=== PATIENT | male | born 1960 | race Caucasian/White ===

== ENCOUNTER 2017-10-25 00:41 | Emergency (ER) | payer OTHER ==
[~2017-10-25] VITALS: Ht 182.9 cm; Wt 90.7 kg
[~2017-10-25 00:41] MED LIST: ZOFRAN ONE
[2017-10-25] MEDS ORDERED: ZOFRAN IV STA (00:48)
--- NOTE | 2017-10-25 00:55 | ER.PDOC ---
General Chief Complaint: Nausea,Vomiting,Diarrhea Stated Complaint: N/V,WEAKNESS Time seen by MD: 00:52 Source: patient, EMS Exam Limitations: no limitations History of Present Illness Initial Comments 56 year old white male with acute onset of nausea and vomiting. He was eating pizza two hours ago and suddenly felt sick to his stomach. No fever, no chills. No chest pain Severity/Quality: moderate Abdominal Pain Onset Location: Epigastric Associated Symptoms (vomiting): freq vomitng Allergies: Coded Allergies: No Known Allergies (Unverified , 10/25/17) Vital Signs First Vital Signs Date Time Temp Pulse Resp B/P (MAP) Pulse Ox O2 Delivery O2 Flow Rate FiO2 10/25/17 00:42 98.2 96 18 93 Room Air Last Vital Signs Date Time Temp Pulse Resp B/P (MAP) Pulse Ox O2 Delivery O2 Flow Rate FiO2 10/25/17 00:48 98.2 10/25/17 00:42 96 18 93 Room Air Past Medical History Medical History: diabetes, high cholesterol, hypertension Surgical History: no surgical history Social History Smoking: non-smoker Alcohol Use: none Drug Use: none Constitutional: weakness EENTM: no symptoms reported Respiratory: no symptoms reported Cardiovascular: no symptoms reported Gastrointestinal: see HPI Genitourinary: no symptoms reported Musculoskeletal: no symptoms reported Skin: no symptoms reported Psychiatric/Neurological: no symptoms reported Endocrine: no symptoms reported Hematologic/Lymphatic: no symptoms reported Physical Exam General Appearance: No Apparent Distress, WD/WN HEENT: PERRL/EOMI, Normal ENT Inspection, TMs Normal, Pharynx Normal Neck: Non-Tender, Full Range of Motion, Supple, Normal Inspection Respiratory: chest non-tender, lungs clear, normal breath sounds, no respiratory distress, no accessory muscle use Cardiovascular: Normal Peripheral Pulses, Regular Rate, Rhythm, No Edema, No Gallop, No JVD, No Murmur Gastrointestinal: Normal Bowel Sounds, Non Tender, Soft Back: Normal Inspection, No CVA Tenderness, No Vertebral Tenderness Extremities: Normal Range of Motion, Non-Tender, Normal Inspection, No Pedal Edema, No Calf Tenderness, Normal Capillary Refill, Pelvis Stable Neurologic/Psychiatric: dope heater II-XII NML as Tested, No Motor/Sensory Deficits, Alert, Normal Mood/Affect, Oriented x 3 Skin: Normal Color, Warm/Dry Lymphatic: No Adenopathy Results/Orders Results/Orders Laboratory Tests Test 10/25/17 00:58 White Blood Count 11.9 10^3/uL (4.5-11.0) Red Blood Count 4.88 10^6/uL (4.50-5.90) Hemoglobin 14.2 g/dL (13.9-16.3) Hematocrit 41.2 % (37.0-53.0) Mean Corpuscular Volume 84.4 fL (78-100) Mean Corpuscular Hemoglobin 29.1 pg (26-34) Mean Corpuscular Hemoglobin Concent 34.5 g/dL (33-37) Red Cell Distribution Width 13.7 % (11.5-14.5) Platelet Count 274 10^3/uL (150-400) Mean Platelet Volume 10.2 fL (7.8-11.0) Neutrophils (%) (Auto) 76.8 % (41.0-85.0) Lymphocytes (%) (Auto) 9.8 % (24.0-44.0) Monocytes (%) (Auto) 11.2 % (5.0-12.0) Neutrophils # (Auto) 9.1 10^3/uL (1.8-7.7) Lymphocytes # (Auto) 1.2 10^3/uL (1.0-4.8) Monocytes # (Auto) 1.3 10^3/uL (0.3-0.8) Eosinophils % 1.9 % (0.0-5.0) Basophils % 0.3 % (0.0-0.2) Basophils # 0.0 10^3/uL (0.0-0.1) Eosinophil Count 0.2 10^3/uL (0.0-0.2) Sodium Level 140 mmol/L (132-145) Potassium Level 3.5 mmol/L (3.6-5.2) Chloride Level 101.0 mmol/L (96-109) Carbon Dioxide Level 27.6 mmol/L (20.0-32) Anion Gap 14.9 Blood Urea Nitrogen 24 mg/dL (7-18) Creatinine 1.34 mg/dL (0.59-1.40) Estimated GFR () 66.7 (>/=60) BUN/Creatinine Ratio 17.0 Glucose Level 297 mg/dL (70-110) Calcium Level 9.0 mg/dL (8.4-10.5) Total Bilirubin 0.5 mg/dL (0.2-1.0) Aspartate Amino Transf (AST/SGOT) 40 U/L (0-35) Alanine Aminotransferase (ALT/SGPT) 86 U/L (12-78) Alkaline Phosphatase 55 U/L (50-136) Creatine Kinase MB < 0.5 ng/mL (0.5-3.6) Troponin I < 0.02 ng/mL (0.00-0.05) Total Protein 7.5 g/dL (6.4-8.2) Albumin 4.2 g/dL (3.4-5.0) Globulin 3.3 Amylase Level 21 U/L (25-115) Lipase 175 U/L (114-286) Administered Medications Medications (Trade) Dose Ordered Sig/Lavinia Route PRN Reason Start Time Stop Time Status Last Admin Dose Admin Sodium Chloride 1,000 ml @ 500 mls/hr Q2H ONCE IV 10/25/17 01:00 10/25/17 02:59 10/25/17 01:30 Ondansetron HCl (Zofran) 4 mg STAT STAT IV 10/25/17 00:48 10/25/17 00:53 DC 10/25/17 01:13 Progress Progress Feeling better on recheck Departure Time of Disposition: 01:50 Disposition: 01 HOME, SELF-CARE Impression: Primary Impression: Nausea & vomiting Qualified Codes: R11.2 - Nausea with vomiting, unspecified Condition: Stable Additional Instructions: Clear liquid diet Zofran prn Follow up PCP RTER prn Duration or Time Spent with Pa: 45 DESMOND HERNÁNDEZ MD Oct 25, 2017 00:55
[2017-10-25] MEDS ORDERED: NS 1000ML 1,000 ML IV ONE (01:00)
[2017-10-25 01:03] LABS: BASOPHIL % 0.3 % (0.0-0.2); EOSINOPHIL # 0.2 10^3/uL (0.0-0.2); EOSINOPHIL % 1.9 % (0.0-5.0); HEMOGLOBIN 14.2 g/dL (13.9-16.3); LYMPHOCYTES # 1.2 10^3/uL (1.0-4.8); LYMPHOCYTES % 9.8 % (24.0-44.0); MEAN CELL HGB 29.1 pg (26-34); MEAN CELL HGB CONCENTRATION 34.5 g/dL (33-37); MEAN CORP VOLUME 84.4 fL (78-100); MEAN PLATELET VOLUME 10.2 fL (7.8-11.0); MONOCYTES # 1.3 10^3/uL (0.3-0.8); MONOCYTES % 11.2 % (5.0-12.0); NEUTROPHIL # 9.1 10^3/uL (1.8-7.7); NEUTROPHILS % 76.8 % (41.0-85.0); PLATELET COUNT 274 10^3/uL (150-400); RED CELL DISTRIBUTION WIDTH 13.7 % (11.5-14.5); WHITE BLOOD CELL 11.9 10^3/uL (4.5-11.0)
--- NOTE | 2017-10-25 01:04 | PCM.EKG ---
[facility] Test Date: 2017-10-25 Test Time: 01:05:11 Pat Name: JACKIE CONTEH [facility]: [id number] Room: Gender: M Osteologist: LAISHA : 1961-10-25 Requested By: GABE HERNÁNDEZ Order Number: [id number] Reading MD: Gabe Hernández Measurements Intervals [place] Rate: 90 P: 30 ND: 166 QRS: -12 QRSD: 104 T: 39 QT: 386 QTc: 472 Interpretive Statements Normal sinus rhythm Normal ECG No previous ECG available for comparison Electronically Signed On 10-25-2017 6:35:10 CDT by Gabe Hernández Please click the below link to view image of tracing.
[2017-10-25] MEDS ORDERED: NS 1000ML 1,000 ML ONE (01:22)
[2017-10-25 01:28] LABS: ALANINE AMINOTRANSFERASE(ML) 86 U/L (12-78); ALKALINE PHOSPHATASE 55 U/L (50-136); ASPARTATE AMINO TRANSFERASE 40 U/L (0-35); CARBON DIOXIDE 27.6 mmol/L (20.0-32); GLUCOSE 297 mg/dL (70-110)
--- NOTE | 2017-10-25 01:29 | DIREP ---
PROCEDURE:XRAY ACUTE ABD without CHEST TECHNIQUE :Flat and upright views of the abdomen are provided. COMPARISON:None. INDICATIONS:nausea and vomiting FINDINGS: BOWEL GAS PATTERN:Paucity of bowel gas without air-fluid levels or evidence of bowel obstruction. FREE AIR:None. CALCIFICATIONS:None significant. OTHER:Mild degenerative changes of the lower lumbar spine.. CONCLUSION:Paucity of bowel gas. No definite evidence of bowel obstruction. Dictated by: Chris Waldrop DO on 10/25/2017 at 01:27 AM
--- NOTE | 2017-10-25 01:30 | DIREP ---
PROCEDURE:CHEST 1 VIEW COMPARISON:None. INDICATIONS:nausea and vomiting FINDINGS: LUNGS/PLEURA:Bibasilar atelectasis with interstitial coarsening and evidence of obstructive lung disease. VASCULATURE:Normal. Unremarkable pulmonary vasculature. CARDIAC:Normal. No cardiac silhouette abnormality or cardiomegaly. MEDIASTINUM:Normal. No visible mass or adenopathy. BONES:Normal. No fracture or visible bony lesion. OTHER:Negative. CONCLUSION:Coarsened interstitium without definite consolidation. Dictated by: Chris Waldrop DO on 10/25/2017 at 01:28 AM
--- NOTE | 2017-10-25 01:55 | NUR ---
IV DC'D TIP INTACT, NO BLEEDING
[2017-10-25 02:04] VITALS: BP 130/82
== END 2017-10-25 02:00 | disposition home or self-care (01) ==
LOC: ER 00:41
DX: R11.2 Nausea with vomiting, unspecified (principal); R10.13 Epigastric pain; I10 Essential (primary) hypertension; E11.9 Type 2 diabetes mellitus without complications; E78.00 Pure hypercholesterolemia, unspecified
CPT/HCPCS: 36415; 71045; 74019; 80053; 82150; 82553; 83690; 84484; 85025; 93005; 96374; 99285; J2405; J7030; 74022